=== PATIENT | male | born 1985 | race Caucasian/White ===

== ENCOUNTER 2016-02-23 11:43 | Emergency (ER) | payer SELFPAY ==
[~2016-02-23] VITALS: Ht 165.1 cm; Wt 63.5 kg
[2016-02-23 11:49] VITALS: BP 111/76
[2016-02-23] MEDS ORDERED: IBUPROFEN 400 MG TABLET PO ONE (12:00)
[2016-02-23] MEDS ORDERED: IBUPROFEN 400 MG TABLET ONE (12:32)
== END 2016-02-23 13:04 | disposition home or self-care (01) ==
LOC: ER 11:45
DX: S60.021A Contusion of right index finger without damage to nail, initial encounter (principal); W23.0XXA Caught, crushed, jammed, or pinched between moving objects, initial encounter; Y93.89 Activity, other specified; Y92.89 Other specified places as the place of occurrence of the external cause; Y99.8 Other external cause status
CPT/HCPCS: 73140-TC; A4606; Z7610

== ENCOUNTER 2020-06-25 09:56 | Emergency (ER) | payer MEDICAID ==
[~2020-06-25] VITALS: Ht 165.1 cm; Wt 68.0 kg
[2020-06-25 10:04] VITALS: BP 125/72
--- NOTE | 2020-06-25 10:07 | NUR ---
AT BEDSIDE FOR EVAL.
[2020-06-25] MEDS ORDERED: IBUP-1957 PO (10:11)
== END 2020-06-25 10:16 | disposition home or self-care (01) ==
LOC: ER 09:56
DX: M25.511 Pain in right shoulder (principal); F17.200 Nicotine dependence, unspecified, uncomplicated; Z60.2 Problems related to living alone

== ENCOUNTER 2025-01-31 15:57 | Emergency (ER) | payer MEDICAID ==
[~2025-01-31] VITALS: Ht 165.1 cm; Wt 68.0 kg
[~2025-01-31 15:57] MED LIST: IBUP-1957 PO
[2025-01-31 16:21] VITALS: BP 119/68; TEMP 98.5; O2SAT 97
[2025-01-31] MEDS ORDERED: IBUP-1490 PO (16:39)
[2025-01-31] MEDS ORDERED: TDAP [DIPH/PERTUSSIS/TET] 0.5 ML VIAL IM ONE (16:42)
[2025-01-31] MEDS ORDERED: BACITRACIN ZINC OINT PACKET 1 EA PACKET TP ONE (16:42)
[2025-01-31] MEDS ORDERED: IBUPROFEN 600 MG TABLET ONE (16:42)
[2025-01-31] MEDS: TDAP [DIPH/PERTUSSIS/TET] 0.5 ML VIAL IM ONE (16:51)
[2025-01-31] MEDS: IBUPROFEN 600 MG TABLET PO ONE (16:51)
[2025-01-31] MEDS: BACITRACIN ZINC OINT PACKET 1 EA PACKET TP ONE (16:51)
== END 2025-01-31 16:54 | disposition home or self-care (01) ==
LOC: ER 15:57
DX: S01.511A Laceration without foreign body of lip, initial encounter (principal); S80.212A Abrasion, left knee, initial encounter; F17.200 Nicotine dependence, unspecified, uncomplicated; Z79.1 Long term (current) use of non-steroidal anti-inflammatories (NSAID); W01.0XXA Fall on same level from slipping, tripping and stumbling without subsequent striking against object, initial encounter; Y93.89 Activity, other specified; Y92.89 Other specified places as the place of occurrence of the external cause; Y99.8 Other external cause status
CPT/HCPCS: 90715